=== PATIENT | female | born 1970 | race Caucasian/White ===

== ENCOUNTER 2025-02-12 08:15 | Inpatient (IN) | payer MEDICAID ==
[~2025-02-12] VITALS: Ht 154.9 cm; Wt 78.5 kg
[~2025-02-12 08:15] MED LIST: BUPIVACAINE HCL/PF 0.5% (5MG/ML) 10ML ONE; LACTATED RINGERS 1,000 ML IV SCH
[2025-02-12] MEDS ORDERED: ROCURONIUM BROMIDE 10MG/ML VIAL 5ML IV ONE ×2 (11:18→13:07)
[2025-02-12] MEDS ORDERED: FENTANYL CITRATE/PF 50MCG/ML 2ML VIAL ONE (11:39)
[2025-02-12] MEDS ORDERED: MIDAZOLAM HCL 2 MG/2 ML VIAL ONE (11:40)
[2025-02-12] MEDS ORDERED: ACETAMINOPHEN 1000MG/100ML 100 ML IV ONE (12:04)
[2025-02-12] MEDS ORDERED: LIDOCAINE HCL 1% 10 MG/ML 10ML VIAL ONE (12:09)
[2025-02-12] MEDS ORDERED: MORPHINE SULFATE 2 MG/ML INJ (NOT FOR IM USE) IV PRN (12:15)
[2025-02-12] MEDS ORDERED: ONDANSETRON HCL 4MG/2ML INJ ONE ×2 (12:29→13:11)
[2025-02-12] MEDS ORDERED: PHENYLEPHRINE HCL 10MG/ML 1ML IV ONE (12:41)
[2025-02-12] MEDS ORDERED: CALCIUM CHLORIDE 1GM/10ML SYR IV ONE (12:42)
[2025-02-12] MEDS ORDERED: ALBUTEROL 6.7GM HFA INHALER ONE (13:10)
[2025-02-12] MEDS ORDERED: KETOROLAC 30MG/ML VIAL ONE (13:22)
[2025-02-12] MEDS ORDERED: FAMOTIDINE 20MG/2ML VIAL IV ONE (13:29)
[2025-02-12] MEDS: ONDANSETRON HCL 4MG/2ML INJ IV PRN (14:14)
[2025-02-12] MEDS: DEXT 5%/0.45% NACL KCL 20MEQ/L 1,000 ML IV SCH (14:36)
[2025-02-12] MEDS: HYDROMORPHONE HCL/PF 1MG/ML INJ IV PRN (15:12)
[2025-02-12 16:00] VITALS: BP 113/66; PULSE 80; RESP 16; TEMP 36.2; O2SAT 99
[2025-02-12] MEDS: MORPHINE SULFATE 4 MG/ML INJ (FOR IV/IM USE) IV PRN (17:06)
[2025-02-12 18:44] VITALS: BP 129/81; PULSE 78; RESP 18; TEMP 35.8064
[2025-02-12 20:00] VITALS: BP 119/74; PULSE 75; RESP 17; TEMP 36.4; O2SAT 94
[2025-02-12] MEDS ORDERED: NALOXONE HCL 0.4MG/ML VIAL IV PRN (21:30)
[2025-02-12] MEDS: CEFAZOLIN 1000MG PREMIX 50 ML IV SCH (21:44)
[2025-02-13] VITALS: BP 120/73; PULSE 76; RESP 18; TEMP 36.6; O2SAT 95
[2025-02-13 04:00] VITALS: BP 123/71; PULSE 71; RESP 17; TEMP 36.6; O2SAT 97
[2025-02-13] MEDS: MORPHINE SULFATE 4 MG/ML INJ (FOR IV/IM USE) IV NR (04:17)
[2025-02-13 08:00] VITALS: BP 123/73; PULSE 70; RESP 18; TEMP 36.4; O2SAT 97
[2025-02-13 12:00] VITALS: BP 126/71; PULSE 65; RESP 18; TEMP 36.7; O2SAT 97
[2025-02-13 16:00] VITALS: BP 119/74; PULSE 65; RESP 18; TEMP 36.6; O2SAT 96
[2025-02-13 20:00] VITALS: BP 113/65; PULSE 70; RESP 18; TEMP 36.8; O2SAT 98
[2025-02-14] VITALS: BP 132/77; PULSE 68; RESP 20; TEMP 36.3; O2SAT 99
[2025-02-14 04:00] VITALS: BP 130/77; PULSE 66; RESP 17; TEMP 36.8; O2SAT 96
[2025-02-14 08:00] VITALS: BP 122/125; PULSE 73; RESP 18; TEMP 36.4; O2SAT 93; O2SAT 96
[2025-02-14 12:00] VITALS: BP 125/75; PULSE 61; RESP 16; TEMP 36.7; O2SAT 97
[2025-02-14 16:00] VITALS: BP 130/77; PULSE 62; RESP 18; TEMP 36.4; O2SAT 97
[2025-02-14 20:00] VITALS: BP 127/75; PULSE 71; RESP 19; TEMP 37.1; O2SAT 97
[2025-02-14] MEDS: MORPHINE SULFATE 4 MG/ML INJ (FOR IV/IM USE) IV PRN (23:55)
[2025-02-15] VITALS: BP 137/76; PULSE 68; RESP 17; TEMP 36.3; O2SAT 97
[2025-02-15 04:00] VITALS: BP 129/79; PULSE 70; RESP 18; TEMP 36.7; O2SAT 95
[2025-02-15 08:00] VITALS: BP 128/83; PULSE 71; RESP 20; TEMP 36.3; O2SAT 95
[2025-02-15 12:00] VITALS: BP 129/78; PULSE 69; RESP 19; TEMP 36.6; O2SAT 95
[2025-02-15 16:00] VITALS: BP 128/77; PULSE 78; RESP 20; TEMP 36.7; O2SAT 98
[2025-02-15 20:00] VITALS: BP 127/78; PULSE 78; RESP 18; TEMP 36.1; O2SAT 97
[2025-02-16] VITALS: BP 122/71; PULSE 68; RESP 18; TEMP 36.2; O2SAT 97
[2025-02-16 04:00] VITALS: BP 121/73; PULSE 65; RESP 20; TEMP 36.3; O2SAT 95
[2025-02-16 08:00] VITALS: BP 127/66; PULSE 60; RESP 18; TEMP 36.1; O2SAT 97
[2025-02-16 12:00] VITALS: BP 115/68; PULSE 61; RESP 18; TEMP 36.2; O2SAT 98
[2025-02-16 16:00] VITALS: BP 131/83; PULSE 72; RESP 19; TEMP 36.6; O2SAT 97
[2025-02-16 20:00] VITALS: BP 115/73; PULSE 73; RESP 18; TEMP 37.4; O2SAT 97
[2025-02-17] VITALS: BP 120/71; PULSE 72; RESP 18; TEMP 37.1; O2SAT 97
[2025-02-17 08:00] VITALS: BP 105/78; PULSE 69; RESP 17; TEMP 36.1; O2SAT 98
[2025-02-17 12:00] VITALS: BP 113/67; PULSE 68; RESP 18; TEMP 36.3; O2SAT 99
[2025-02-17 16:00] VITALS: BP 117/67; PULSE 70; RESP 17; TEMP 36.4; O2SAT 100
[2025-02-17 20:00] VITALS: BP 105/67; PULSE 74; RESP 19; TEMP 36.4; O2SAT 96
[2025-02-18] VITALS: BP 110/68; PULSE 72; RESP 18; TEMP 36.5; O2SAT 98
[2025-02-18 04:00] VITALS: BP 122/74; PULSE 72; RESP 19; TEMP 37.1; O2SAT 94
[2025-02-18 08:00] VITALS: BP 114/74; PULSE 72; RESP 18; TEMP 36.2; O2SAT 95
[2025-02-18 12:00] VITALS: BP 139/79; PULSE 73; RESP 19; TEMP 36.2; O2SAT 100
[2025-02-18 16:00] VITALS: BP 116/68; PULSE 69; RESP 19; TEMP 36.4; O2SAT 100
[2025-02-18] MEDS ORDERED: NALOXONE HCL 0.4MG/ML VIAL IV PRN (17:30)
[2025-02-18] MEDS ORDERED: ACETAMINOPHEN 325MG TABLET PO PRN (17:30)
[2025-02-18] MEDS: KETOROLAC 15MG/ML VIAL IV PRN (17:49)
[2025-02-18 20:00] VITALS: BP 113/72; PULSE 71; RESP 18; TEMP 37.1; O2SAT 97
[2025-02-19] VITALS: BP 118/69; PULSE 72; RESP 18; TEMP 36.4; O2SAT 96
[2025-02-19 04:00] VITALS: BP 117/70; PULSE 67; RESP 18; TEMP 36.6; O2SAT 96
[2025-02-19 07:23] LABS: CREATININE 0.5 mg/dL (0.6-1.0)
[2025-02-19 07:24] LABS: TRIGLYCERIDE 145 mg/dL (0-150)
[2025-02-19 07:25] LABS: ASPARTATE AMINOTRANSFERASE 12 IU/L (<34); BILIRUBIN DIRECT 0.2 mg/dL (<=3.0); LDL CHOLESTEROL 112 mg/dL (5-100); PROTEIN TOTAL 5.9 g/dL (6.0-8.3)
[2025-02-19 07:26] LABS: PHOSPHORUS 3.4 mg/dL (2.5-4.9); UREA NITROGEN BLOOD 6 mg/dL (9-23)
[2025-02-19 07:28] LABS: BILIRUBIN TOTAL 0.8 mg/dL (0.1-1.0)
[2025-02-19 07:56] LABS: BASOPHILS % 0.5 % (0.0-2.0); EOSINOPHILS % 2.6 % (0.0-5.0); HEMATOCRIT. 37.0 % (36.0-48.0); HEMOGLOBIN. 12.5 g/dL (12.0-16.0); LYMPHOCYTES % 21.7 % (20.0-50.0); MONOCYTES % 8.4 % (2.0-8.0); NEUTROPHILS % 66.8 % (40.0-76.0); RED BLOOD CELL COUNT 4.44 mill/uL (4.2-5.4); RED CELL DISTRIBUTION WIDTH 12.9 % (11.6-14.6)
[2025-02-19 08:00] VITALS: BP 100/62; PULSE 54; RESP 18; TEMP 36.5; O2SAT 96
[2025-02-19 10:12] LABS: PLATELET 272 x1000/uL (130-400)
[2025-02-19 12:00] VITALS: BP 114/91; PULSE 68; RESP 19; TEMP 37.1; O2SAT 98
[2025-02-19 16:00] VITALS: BP 121/74; PULSE 70; RESP 18; TEMP 37; O2SAT 97
[2025-02-19 20:00] VITALS: BP 122/79; PULSE 74; RESP 20; TEMP 37; O2SAT 98
[2025-02-20] VITALS: BP 137/63; PULSE 61; RESP 19; TEMP 36.2; O2SAT 97
[2025-02-20 04:00] VITALS: BP 119/70; PULSE 65; RESP 20; TEMP 36.7; O2SAT 97
[2025-02-20 08:00] VITALS: BP 109/68; PULSE 59; RESP 18; TEMP 37.1; O2SAT 100
[2025-02-20] MEDS: ENOXAPARIN 40MG/0.4ML SYR SUBCUT SCH (08:56)
[2025-02-20] MEDS: POLYETHYLENE GLYCOL 3350 (17GM) 1 DOSE PACK PO SCH (08:56)
[2025-02-20 12:00] VITALS: BP 122/73; PULSE 67; RESP 18; TEMP 37.4; O2SAT 98
[2025-02-20] MEDS ORDERED: HYDR-4001 MT (15:41)
[2025-02-20] MEDS: HYDROCODONE/ACETAMINOPHEN 5/325MG TABLET PO PRN (15:55)
[2025-02-20 16:00] VITALS: BP 112/74; PULSE 76; RESP 18; TEMP 37.2; O2SAT 98
[2025-02-20] MEDS: SENNOSIDES 8.6MG TABLET PO PRN (16:00)
[2025-02-20 20:00] VITALS: BP 111/67; PULSE 69; RESP 18; TEMP 36.6; O2SAT 96
[2025-02-20] MEDS: ONDANSETRON HCL 4MG/2ML INJ IV PRN (20:14)
[2025-02-21] VITALS: BP 97/69; PULSE 69; RESP 18; TEMP 36.3; O2SAT 95
[2025-02-21 08:00] VITALS: BP 133/85; PULSE 86; RESP 21; TEMP 37.2; O2SAT 98
[2025-02-21 12:00] VITALS: BP 118/68; PULSE 66; RESP 20; TEMP 36.9; O2SAT 96
[2025-02-21 14:03] LABS: BASOPHILS % 0.7 % (0.0-2.0); EOSINOPHILS % 2.2 % (0.0-5.0); HEMATOCRIT. 37.4 % (36.0-48.0); HEMOGLOBIN. 13.1 g/dL (12.0-16.0); LYMPHOCYTES % 23.1 % (20.0-50.0); MEAN PLATELET VOLUME 9.2 fl (7.4-10.4); MONOCYTES % 7.1 % (2.0-8.0); NEUTROPHILS % 66.9 % (40.0-76.0); PLATELET 314 x1000/uL (130-400); RED BLOOD CELL COUNT 4.48 mill/uL (4.2-5.4); RED CELL DISTRIBUTION WIDTH 12.9 % (11.6-14.6)
[2025-02-21 14:22] LABS: CREATININE 0.6 mg/dL (0.6-1.0); UREA NITROGEN BLOOD 12 mg/dL (9-23)
[2025-02-21 20:00] VITALS: BP 123/75; PULSE 97; RESP 20; TEMP 36.6; O2SAT 97
[2025-02-22] VITALS: BP 109/71; PULSE 69; RESP 20; TEMP 36.6
[2025-02-22 04:00] VITALS: BP 110/70; PULSE 70; RESP 18; TEMP 36.7
[2025-02-22 08:00] VITALS: BP 113/71; PULSE 63; RESP 18; TEMP 36.5; O2SAT 99
[2025-02-22 12:00] VITALS: BP 107/69; PULSE 60; RESP 18; TEMP 36.5; O2SAT 95
[2025-02-22 20:00] VITALS: BP 110/70; PULSE 62; RESP 18; TEMP 36.3; O2SAT 99
[2025-02-23] VITALS: BP 118/75; PULSE 68; RESP 18; TEMP 36.4; O2SAT 99
[2025-02-23 04:00] VITALS: BP 118/75; PULSE 68; RESP 18; TEMP 36.4; O2SAT 99
[2025-02-23 08:00] VITALS: BP 106/64; PULSE 61; RESP 17; TEMP 36; O2SAT 98
[2025-02-23 12:00] VITALS: BP 109/65; PULSE 60; RESP 17; TEMP 36.2; O2SAT 98
[2025-02-23 15:04] VITALS: BP 109/65; PULSE 60; RESP 17; TEMP 97.2
[2025-02-23 16:00] VITALS: BP 112/80; PULSE 71; RESP 16; TEMP 36.1; O2SAT 99
== END 2025-02-23 16:32 | disposition home health service (06) | DRG 231 ==
LOC: OR 08:15 → 6EST 16:00
PROVIDERS: ADMIT Internal Medicine; ATTEND Internal Medicine
PROC: 0DBN0ZZ Excision of Sigmoid Colon, Open Approach (ICD-10-PCS; principal; 2025-02-13)
PROC: 0DBP0ZZ Excision of Rectum, Open Approach (ICD-10-PCS; 2025-02-13)
DX: K57.32 Diverticulitis of large intestine without perforation or abscess without bleeding (principal); Z79.899 Other long term (current) drug therapy
CPT/HCPCS: 36415; 74018; 80048; 80061; 80076; 83036; 83735; 84100; 85025; 86850; 86900; 88307; 97116; 97161; 97530; 97535; A4606; J0665; J0690; J1171; J1308; J1650; J1885; J2003; J2250; J2270; J2371; J2405; J3010; J3490; J0131